=== PATIENT | male | born 1960 ===

== ENCOUNTER 2023-12-28 12:20 | Emergency (ER) | payer SELFPAY ==
[2023-12-28] MEDS ORDERED: Sodium Chloride 0.9% 10 ML Syringe FLUSH PRN (12:44)
[2023-12-28 12:59] LABS: BASOPHILS PERCENT AUTO 0.5 % (0.0-1.0); EOSINOPHILS PERCENT AUTO 2.1 % (1.0-3.0); HEMATOCRIT 32.9 % (40.0-54.0); HEMOGLOBIN 10.6 g/dL (14.0-18.0); LYMPHOCYTES PERCENT AUTO 9.7 % (20.5-50.1); MEAN CORPUSCULAR HEMOGLOBIN 27.2 pg (27.0-34.0); MEAN CORPUSCULAR HGB CONC 32.2 g/dL (33.0-35.0); MEAN CORPUSCULAR VOLUME 84.4 fL (80-100); MONOCYTES PERCENT AUTO 11.2 % (2-8); NEUTROPHILS PERCENT AUTO 76.5 % (42.2-75.2); PLATELET COUNT,PLT 88 10^3/uL (150-450); WHITE BLOOD CELL COUNT,WBC 3.8 10^3/uL (5.0-10.0)
[2023-12-28 13:17] LABS: B-TYPE NATRIURETIC PEPTIDE,BNP 56 pg/ml (0-100)
[2023-12-28 13:18] LABS: INR 1.1 (0.9-1.2); PROTHROMBIN TIME 10.9 SEC (9.0-12.0); PTT,PARTIAL THROMBOPLSTIN TIME 23.8 SEC (22.0-34.0)
[2023-12-28 13:23] LABS: ALANINE AMINOTRANSFERASE,ALT 63 U/L (16-63); ALBUMIN 3.1 g/dL (3.4-5.0); ALKALINE PHOSPHATASE 171 U/L (46-116); ANION GAP 9.2 mEq/L (7-13); ASPARTATE AMNIOTRANSFERASE,AST 69 U/L (15-37); BILIRUBIN TOTAL 0.8 mg/dL (0.2-1.0); BLOOD UREA NITROGEN,BUN 22 mg/dL (7-18); BUN/CREATININE RATIO 18.5 (No establ ref range); C-REACTIVE PROTEIN 0.97 ng/dL (<=0.50); CARBON DIOXIDE,CO2 29 mmol/L (21-32); CHLORIDE,CL 101 mmol/L (98-107); CREATININE 1.19 mg/dL (0.70-1.30); EST CRCL DRUG DOSING (CG) 67.93 mL/min; GLUCOSE RANDOM 124 mg/dL (70-99); LIPASE 38 U/L (16-77); MAGNESIUM 2.1 mg/dL (1.8-2.4); POTASSIUM,K 4.2 mmol/L (3.5-5.1); PROTEIN TOTAL,TP 7.1 g/dL (6.4-8.2); SODIUM,NA 135 mmol/L (136-145)
[2023-12-28 13:31] LABS: LACTIC ACID 1.5 mmol/L (0.4-2.0)
[2023-12-28 13:34] LABS: A/G RATIO 0.78; ESTIMATED GFR 68 mL/min (>=60); ETHANOL BLOOD MEDICAL < 3 mg/dL (0)
[2023-12-28 14:08] LABS: APPEARANCE,URINE CLEAR (CLEAR); BILIRUBIN,URINE NEGATIVE (NEGATIVE); COLOR,URINE YELLOW (YELLOW); GLUCOSE,URINE NEGATIVE (NEGATIVE); KETONES,URINE NEGATIVE (NEGATIVE); LEUKOCYTE ESTERASE,URINE NEGATIVE (NEGATIVE); NITRITE,URINE NEGATIVE (NEGATIVE); OCCULT BLOOD,URINE TRACE-INTACT (NEGATIVE); PH,URINE 6.5 (5.0-9.0); PROTEIN,URINE NEGATIVE (NEGATIVE)
[2023-12-28] MEDS: Iopamidol 612 MG/ML 100 ML Bottle IVPUSH ONE (14:09)
[2023-12-28 14:12] LABS: AMPHETAMINES,URINE NEGATIVE (NEGATIVE); BARBITURATES,URINE NEGATIVE (NEGATIVE); BENZODIAZEPINE,URINE NEGATIVE (NEGATIVE); MDMA (ECSTASY), URINE NEGATIVE (NEGATIVE); METHADONE,URINE NEGATIVE (NEGATIVE); METHAMPHETAMINES,URINE NEGATIVE (NEGATIVE); OPIATES,URINE NEGATIVE (NEGATIVE); OXYCODONE,URINE NEGATIVE (NEGATIVE); PHENCYCLIDINE,URINE NEGATIVE (NEGATIVE); TCA,URINE NEGATIVE (NEGATIVE)
[2023-12-28 14:19] LABS: BACTERIA,URINE FEW /HPF (0-FEW/HPF); EPITHELIAL CELLS,URINE RARE /HPF (NOT SEEN); MUCUS,URINE RARE /LPF (NOT SEEN); RBC,URINE 0-5 /HPF (0-5); WBC,URINE NOT SEEN /HPF (0-5/HPF)
== END 2023-12-28 14:59 | disposition left against medical advice (07) ==
LOC: DL.ED 12:20
DX: R18.8 Other ascites (principal); J90 Pleural effusion, not elsewhere classified
CPT/HCPCS: 36415; 71045; 74177; 80053; 80305; 80307; 81001; 82272; 83605; 83690; 83735; 83880; 84145; 84484; 85025; 85610; 85730; 86140; 86850; 86900; 86901; 93005; 99285; Q9967; 93010; 99284

== ENCOUNTER 2024-04-30 19:47 | Emergency (ER) | payer MEDICAID ==
[2024-04-30] MEDS: Iopamidol 612 MG/ML 100 ML Bottle IVPUSH ONE (20:05)
[2024-04-30 20:59] LABS: BASOPHILS PERCENT AUTO 0.2 % (0.0-1.0); EOSINOPHILS PERCENT AUTO 1.1 % (1.0-3.0); HEMATOCRIT 35.4 % (40.0-54.0); HEMOGLOBIN 11.4 g/dL (14.0-18.0); LYMPHOCYTES PERCENT AUTO 4.8 % (20.5-50.1); MEAN CORPUSCULAR HGB CONC 32.2 g/dL (33.0-35.0); MEAN CORPUSCULAR VOLUME 83.9 fL (80-100); MONOCYTES PERCENT AUTO 8.7 % (2-8); NEUTROPHILS PERCENT AUTO 85.2 % (42.2-75.2); PLATELET COUNT,PLT 98 10^3/uL (150-450); RED BLOOD CELL COUNT 4.22 10^6/uL (4.6-6.2); WHITE BLOOD CELL COUNT,WBC 5.7 10^3/uL (5.0-10.0)
[2024-04-30] MEDS: Ondansetron 4 MG/2 ML SDV IVPUSH ONE (21:09)
[2024-04-30] MEDS: Pantoprazole 40 MG Vial IVPUSH ONE (21:10)
[2024-04-30 21:19] LABS: A/G RATIO 0.9; ALANINE AMINOTRANSFERASE,ALT 99 U/L (16-63); ALBUMIN 3.4 g/dL (3.4-5.0); ALKALINE PHOSPHATASE 144 U/L (46-116); ANION GAP 16.6 mEq/L (7-13); ASPARTATE AMNIOTRANSFERASE,AST 87 U/L (15-37); BLOOD UREA NITROGEN,BUN 32 mg/dL (7-18); BUN/CREATININE RATIO 22.4 (No establ ref range); CALCIUM 9.6 mg/dL (8.5-10.1); CARBON DIOXIDE,CO2 24 mmol/L (21-32); CHLORIDE,CL 100 mmol/L (98-107); CREATININE 1.43 mg/dL (0.70-1.30); EST CRCL DRUG DOSING (CG) 56.53 mL/min; GLUCOSE RANDOM 128 mg/dL (70-99); INR 1.1 (0.9-1.2); LIPASE 36 U/L (16-77); MAGNESIUM 1.8 mg/dL (1.8-2.4); POTASSIUM,K 4.6 mmol/L (3.5-5.1); PROTEIN TOTAL,TP 7.4 g/dL (6.4-8.2); PROTHROMBIN TIME 11.6 SEC (9.0-12.0); SODIUM,NA 136 mmol/L (136-145)
[2024-04-30 21:21] LABS: ESTIMATED GFR 54 mL/min (>=60); ETHANOL BLOOD MEDICAL < 3 mg/dL (0)
[2024-04-30] MEDS: Lactulose Soln 10 GM/15 ML 30 ML UD Cup PO ONE (22:19)
[2024-04-30] MEDS: Sodium Chloride 0.9% 500 ML IV ONE (22:20)
[2024-04-30 22:46] LABS: APPEARANCE,URINE CLEAR (CLEAR); BILIRUBIN,URINE NEGATIVE (NEGATIVE); COLOR,URINE YELLOW (YELLOW); GLUCOSE,URINE NEGATIVE (NEGATIVE); KETONES,URINE NEGATIVE (NEGATIVE); LEUKOCYTE ESTERASE,URINE NEGATIVE (NEGATIVE); NITRITE,URINE NEGATIVE (NEGATIVE); OCCULT BLOOD,URINE TRACE-LYSED (NEGATIVE); PROTEIN,URINE NEGATIVE (NEGATIVE); UROBILINOGEN,URINE 0.2 mg/dL (0.2-1.0)
[2024-04-30 22:50] LABS: AMPHETAMINES,URINE NEGATIVE (NEGATIVE); BARBITURATES,URINE NEGATIVE (NEGATIVE); BENZODIAZEPINE,URINE NEGATIVE (NEGATIVE); MDMA (ECSTASY), URINE NEGATIVE (NEGATIVE); METHADONE,URINE NEGATIVE (NEGATIVE); METHAMPHETAMINES,URINE NEGATIVE (NEGATIVE); OPIATES,URINE NEGATIVE (NEGATIVE); OXYCODONE,URINE NEGATIVE (NEGATIVE); PHENCYCLIDINE,URINE NEGATIVE (NEGATIVE); TCA,URINE NEGATIVE (NEGATIVE)
[2024-04-30 22:55] LABS: WBC,URINE 0-5 /HPF (0-5/HPF)
[2024-04-30 22:56] LABS: BACTERIA,URINE FEW /HPF (0-FEW/HPF); EPITHELIAL CELLS,URINE RARE /HPF (NOT SEEN); MUCUS,URINE FEW /LPF (NOT SEEN)
[2024-04-30] MEDS ORDERED: Ciprofloxacin in D5W 400 MG in Premix Bag 1 BAG IV ONE (23:11)
== END 2024-04-30 23:32 | disposition home or self-care (01) ==
LOC: DL.ED 19:47
DX: A08.4 Viral intestinal infection, unspecified (principal); N17.9 Acute kidney failure, unspecified; L03.311 Cellulitis of abdominal wall; F12.10 Cannabis abuse, uncomplicated; K70.30 Alcoholic cirrhosis of liver without ascites; E72.20 Disorder of urea cycle metabolism, unspecified; Z87.891 Personal history of nicotine dependence
CPT/HCPCS: 36415; 74177; 80053; 80305; 80307; 81001; 82140; 83690; 83735; 84484; 85025; 85610; 96361; 96374; 96375; 99284; 99285; A9270; J2405; J2470; J7030; Q9967